=== PATIENT | female | born 1990 | race Caucasian/White ===

== ENCOUNTER 2022-05-12 20:53 | Emergency (ER) | payer OTHER ==
[~2022-05-12] VITALS: Ht 167.6 cm; Wt 102.3 kg
[2022-05-12 21:08] VITALS: TEMP 98.6
[2022-05-12 23:15] VITALS: BP 121/78; PULSE 76
== END 2022-05-12 23:15 | disposition home or self-care (01) ==
LOC: COL.ER 20:53
DX: S06.0X0A Concussion without loss of consciousness, initial encounter (principal); S83.92XA Sprain of unspecified site of left knee, initial encounter; S40.012A Contusion of left shoulder, initial encounter; Z28.310 Unvaccinated for COVID-19; V80.010A Animal-rider injured by fall from or being thrown from horse in noncollision accident, initial encounter; Y93.52 Activity, horseback riding
CPT/HCPCS: 31289; L1830; L1846